=== PATIENT | male | born 2000 | race Caucasian/White ===

== ENCOUNTER 2020-01-30 22:00 | Emergency (ER) | payer SELFPAY ==
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
[2020-01-30] MEDS ORDERED: Lidocaine 2% Jelly 30 ML Tube MUCMEM ONE (23:45)
[2020-01-31] MEDS ORDERED: Lidocaine 2% Viscous Solution 15 ML Cup PO ONE (00:01)
[2020-01-31] MEDS ORDERED: Ibuprofen 600 MG Tab PO ONE (01:04)
== END 2020-01-31 01:18 | disposition home or self-care (01) ==
LOC: MW.ED 22:00
DX: S02.2XXA Fracture of nasal bones, initial encounter for closed fracture (principal); W51.XXXA Accidental striking against or bumped into by another person, initial encounter
CPT/HCPCS: 70486; 99285; A9270